=== PATIENT | female | born 1945 | race Two or more races ===

== ENCOUNTER 2022-04-01 09:43 | Emergency (ER) | payer MEDICARE ==
[~2022-04-01] VITALS: Ht 154.9 cm; Wt 63.0 kg
[~2022-04-01 09:43] MED LIST: ALEN70TA74 PO; ASPI-543 PO; HYDR500C PO; HYDR50TA15 PO; ISO60SRT PO; METO-289 PO; NIFE1TAB36 PO; SIMV-8 PO; TOPI50TA53 PO; [UNRECOGNIZED DRUG - CODE] PO
[2022-04-01] MEDS ORDERED: PANT40TA2 PO (11:09)
[2022-04-01] MEDS ORDERED: AZIT250T9 PO (11:09)
[2022-04-01] MEDS ORDERED: PRED10TA PO (11:09)
[2022-04-01 11:12] LABS: Basophils # (auto) 0 10 ^3/uL (0-0.2); Eosinophils # (auto) 0 10 ^3/uL (0-0.8); Eosinophils % (auto) 0.1 % (0.0-7.0); Hematocrit 39.1 % (36.0-46.0); Mean Corpuscular Hemoglobin 37.9 pg (28.0-32.0); Monocytes # (auto) 0.5 10 ^3/uL (0-1.3); Neutrophils # (auto) 7.2 10 ^3/uL (1.6-8.6); Nucleated Red Blood Cells % 0.1 %; Red Blood Cells 3.58 10^6/uL (4.0-5.20); White Blood Cell 8.8 10^3/uL (4.4-10.8)
[2022-04-01 11:15] LABS: Basophils % (auto) 0.3 % (0.0-2.0); Hemoglobin 13.5 g/dL (12.2-16.2); Lymphocytes % (auto) 11.6 % (10.0-50.0); Mean Corpuscular Hgb Conc. 34.6 g/dL (32.0-36.0); Mean Corpuscular Volume 109.4 fL (80.0-100.0); Monocytes % (auto) 6.2 % (0.0-12.0); Neutrophils % (auto) 81.8 % (37.0-80.0); Red Cell Distribution Width 14.1 % (11.8-14.3)
[2022-04-01] MEDS ORDERED: cefTRIAXone 1GM/50ML D5W 50 ML IV ONE (11:15)
[2022-04-01 11:20] LABS: Albumin 4.5 g/dL (3.4-5.0); BUN/Creatinine Ratio 19.8; Potassium 4.5 mmol/L (3.5-5.1)
[2022-04-01 11:23] LABS: Bilirubin, Total 0.4 mg/dL (0.2-1.0); Total Protein 7.9 g/dL (6.4-8.2)
[2022-04-01] MEDS ORDERED: cefTRIAXone SOD 1,000 MG VL ONE (12:38)
[2022-04-01 12:50] VITALS: BP 178/82
== END 2022-04-01 12:52 | disposition home or self-care (01) ==
LOC: ER 09:43
DX: U07.1 COVID-19 (principal); J06.9 Acute upper respiratory infection, unspecified; E78.5 Hyperlipidemia, unspecified; I10 Essential (primary) hypertension; Z90.49 Acquired absence of other specified parts of digestive tract; Z90.710 Acquired absence of both cervix and uterus
CPT/HCPCS: 36415; 71046; 80053; 85025; J0696

== ENCOUNTER 2022-04-15 08:14 | Emergency (ER) | payer MEDICARE ==
[~2022-04-15] VITALS: Ht 154.9 cm; Wt 63.0 kg
[~2022-04-15 08:14] MED LIST changes: +AZIT250T9 PO; +PANT40TA2 PO; +PRED10TA PO
[2022-04-15 09:15] VITALS: BP 162/67
== END 2022-04-15 11:15 | disposition home or self-care (01) ==
LOC: ER 08:14
DX: Z00.00 Encounter for general adult medical examination without abnormal findings (principal); E78.5 Hyperlipidemia, unspecified; I10 Essential (primary) hypertension; Z20.822 Contact with and (suspected) exposure to COVID-19; Z90.49 Acquired absence of other specified parts of digestive tract; Z90.710 Acquired absence of both cervix and uterus
CPT/HCPCS: 36415

== ENCOUNTER → 2022-09-06 | Outpatient (CLI) | payer MEDICARE ==
[2022-09-06 12:42] LABS: Basophils # (auto) 0 10 ^3/uL (0-0.2); Basophils % (auto) 0.4 % (0.0-2.0); Eosinophils # (auto) 0.1 10 ^3/uL (0-0.8); Eosinophils % (auto) 1.3 % (0.0-7.0); Hemoglobin 13.8 g/dL (12.2-16.2); Lymphocytes # (auto) 2.9 10 ^3/uL (0.4-5.4); Lymphocytes % (auto) 37.2 % (10.0-50.0); Mean Corpuscular Hgb Conc. 32.9 g/dL (32.0-36.0); Mean Corpuscular Volume 112.4 fL (80.0-100.0); Monocytes # (auto) 0.7 10 ^3/uL (0-1.3); Monocytes % (auto) 8.8 % (0.0-12.0); Neutrophils # (auto) 4.1 10 ^3/uL (1.6-8.6); Neutrophils % (auto) 52.3 % (37.0-80.0); Nucleated Red Blood Cells % 0.1 %; Red Blood Cells 3.74 10^6/uL (4.0-5.20); Red Cell Distribution Width 14.8 % (11.8-14.3); Urine Blood Negative /uL (Negative); Urine Specific Gravity 1.011 (1.001-1.035); White Blood Cell 7.8 10^3/uL (4.4-10.8)
[2022-09-06 13:02] LABS: Alanine Aminotransferase 27 U/L (13-56); Albumin 3.9 g/dL (3.4-5.0); Anion Gap 7 (5-15); Aspartate Aminotransferase 17 U/L (15-37); BUN/Creatinine Ratio 28.8; Bilirubin, Direct < 0.1 mg/dL (0-0.2); Blood Urea Nitrogen 23 mg/dL (7-18); Carbon Dioxide 18 mmol/L (21-32); Chloride 117 mmol/L (98-107); Cholesterol 167 mg/dL (< 200); GFR African American 90 mL/min; GFR Non-African American 74 mL/min; Glucose 108 mg/dL (74-106); Potassium 3.8 mmol/L (3.5-5.1); Sodium 142 mmol/L (136-145); Triglycerides 266 mg/dL (< 150)
[2022-09-06 13:06] LABS: Alkaline Phosphatase 42 U/L (45-117); Bilirubin, Total 0.2 mg/dL (0.2-1.0); HDL Cholesterol 51 mg/dL (40-59); LDL Cholesterol 88 mg/dL (< 100); Total Protein 7.5 g/dL (6.4-8.2)
== END | disposition home or self-care (01) ==
LOC: Rad HDHVI 10:12
PROVIDERS: ATTEND Internal Medicine Cardiovascular Disease
DX: I10 Essential (primary) hypertension (principal); E55.9 Vitamin D deficiency, unspecified
CPT/HCPCS: 36415; 71046; 80048; 80061; 80076; 81003; 82306; 83036; 84443; 85025; 87086

== ENCOUNTER 2022-09-09 08:58 | Outpatient (CLI) | payer MEDICARE ==
[2022-09-09 08:58] VITALS: BP 139/61
[2022-09-09] MEDS ORDERED: IOHEXOL 350 MG/ML 100ML IJ ONE (09:02)
== END 2022-09-09 09:02 | disposition home or self-care (01) ==
LOC: Rad HDHVI 08:58
PROVIDERS: ATTEND Internal Medicine Cardiovascular Disease
DX: I25.10 Atherosclerotic heart disease of native coronary artery without angina pectoris (principal); R07.9 Chest pain, unspecified; R06.9 Unspecified abnormalities of breathing
CPT/HCPCS: G0463; Q9967

== ENCOUNTER → 2022-09-10 | Outpatient (CLI) | payer MEDICARE ==
[2022-09-10 08:49] VITALS: BP 137/59
[2022-09-10 09:18] VITALS: BP 155/59
== END | disposition home or self-care (01) ==
LOC: Rad HDHVI 08:38
PROVIDERS: ATTEND Internal Medicine Cardiovascular Disease
DX: J81.1 Chronic pulmonary edema (principal); H17.13 Central corneal opacity, bilateral; J84.9 Interstitial pulmonary disease, unspecified; I20.9 Angina pectoris, unspecified; R06.02 Shortness of breath; R07.89 Other chest pain
CPT/HCPCS: 71275; G0463

== ENCOUNTER → 2022-09-12 | Outpatient (CLI) | payer MEDICARE | END | disposition home or self-care (01) | LOC: Rad HDHVI 15:31 | PROVIDERS: ATTEND Internal Medicine Cardiovascular Disease | DX: I08.0 Rheumatic disorders of both mitral and aortic valves (principal); I10 Essential (primary) hypertension | CPT/HCPCS: 93306 ==

== ENCOUNTER → 2022-09-17 | Outpatient (CLI) | payer MEDICARE ==
[~2022-09-17] VITALS: Ht 154.9 cm; Wt 63.0 kg
[~2022-09-17] MED LIST changes: +ADENOSINE 53 MG in GIVE UN-DILUTED 0 ML IV ONE; +ADENOSINE 90 MG/30 ML INJ IV ONE
== END | disposition home or self-care (01) ==
LOC: Rad HDHVI 08:13
PROVIDERS: ATTEND Internal Medicine Cardiovascular Disease
DX: I11.0 Hypertensive heart disease with heart failure (principal); I50.33 Acute on chronic diastolic (congestive) heart failure; R06.02 Shortness of breath; E78.5 Hyperlipidemia, unspecified; R07.9 Chest pain, unspecified; I20.9 Angina pectoris, unspecified; Z79.899 Other long term (current) drug therapy
CPT/HCPCS: 78452; 93005; 96374; 96375; A9500; J0153

== ENCOUNTER → 2022-10-23 | Outpatient (CLI) | payer MEDICARE ==
[~2022-10-23] MED LIST changes: -ADENOSINE 53 MG in GIVE UN-DILUTED 0 ML IV ONE; -ADENOSINE 90 MG/30 ML INJ IV ONE; +ESOM40CA39 PO; +ISOS1TAB28 PO; +NIFE1TAB30 PO; +TOPI25TA84 PO
[2022-10-23 09:00] VITALS: BP 145/72
[2022-10-23 09:20] VITALS: BP 131/62
[2022-10-23 12:00] LABS: Potassium 3.8 mmol/L (3.5-5.1)
[2022-10-23 12:04] LABS: BUN/Creatinine Ratio 23.1; Calcium 10.1 mg/dL (8.5-10.1)
[2022-10-23 12:33] LABS: INR 1.07 (0.9-1.15); Partial Thromboplastin Time 25.8 sec (24.6-33.4)
[2022-10-23 12:40] LABS: Basophils # (auto) 0 10 ^3/uL (0-0.2); Basophils % (auto) 0.4 % (0.0-2.0); Eosinophils # (auto) 0 10 ^3/uL (0-0.8); Eosinophils % (auto) 0.5 % (0.0-7.0); Hematocrit 38.5 % (36.0-46.0); Hemoglobin 12.7 g/dL (12.2-16.2); Lymphocytes # (auto) 2.2 10 ^3/uL (0.4-5.4); Lymphocytes % (auto) 38.7 % (10.0-50.0); Mean Corpuscular Hemoglobin 36.8 pg (28.0-32.0); Mean Corpuscular Volume 111.5 fL (80.0-100.0); Monocytes # (auto) 0.4 10 ^3/uL (0-1.3); Monocytes % (auto) 7.5 % (0.0-12.0); Neutrophils # (auto) 3.1 10 ^3/uL (1.6-8.6); Neutrophils % (auto) 52.9 % (37.0-80.0); Nucleated Red Blood Cells % 0.1 %; Red Blood Cells 3.45 10^6/uL (4.0-5.20); Red Cell Distribution Width 14.8 % (11.8-14.3); White Blood Cell 5.8 10^3/uL (4.4-10.8)
== END | disposition home or self-care (01) ==
LOC: Rad HDHVI 08:50
PROVIDERS: ATTEND Internal Medicine Cardiovascular Disease
DX: Z01.818 Encounter for other preprocedural examination (principal); R94.31 Abnormal electrocardiogram [ECG] [EKG]; I20.0 Unstable angina; I11.0 Hypertensive heart disease with heart failure; I50.33 Acute on chronic diastolic (congestive) heart failure; R06.02 Shortness of breath; Z20.822 Contact with and (suspected) exposure to COVID-19
CPT/HCPCS: 36415; 71046; 80048; 85025; 85610; 85730; 93005; C9803; G0463; U0003

== ENCOUNTER 2022-10-24 07:20 | Day surgery (SDC) | payer MEDICARE ==
[~2022-10-24] VITALS: Ht 154.9 cm; Wt 64.4 kg
[~2022-10-24 07:20] MED LIST changes: -ALEN70TA74 PO; -ASPI-543 PO; -AZIT250T9 PO; -ISO60SRT PO; -NIFE1TAB30 PO; -PANT40TA2 PO; -PRED10TA PO; -TOPI25TA84 PO
[2022-10-24] MEDS ORDERED: ANGIOMAX 250 MG VIAL IV ONE (10:11)
[2022-10-24] MEDS ORDERED: HEPARIN SODIUM (PORCINE) 5000 UNITS/ML 1ML VIAL ONE (10:12)
[2022-10-24] MEDS ORDERED: SODIUM CHL 0.9% 0 ML ONE (10:12)
[2022-10-24] MEDS ORDERED: MIDAZOLAM HCL 2MG/2ML 2ml VIAL (1mg/ml) ONE (10:12)
[2022-10-24] MEDS ORDERED: fentaNYL CITRATE 100 MCG/2 ML VL ONE (10:12)
[2022-10-24] MEDS ORDERED: IOHEXOL 350 MG/ML 100ML IJ ONE (10:12)
[2022-10-24] MEDS ORDERED: LIDOCAINE 2%HCL (LOCAL ANESTH.) INJ 20ML MDV ONE (10:13)
[2022-10-24] MEDS ORDERED: TOPI25TA84 PO (11:06)
[2022-10-24] MEDS ORDERED: NIFE1TAB30 PO (11:06)
== END 2022-10-24 12:10 | disposition home or self-care (01) ==
LOC: CATH 07:20
PROVIDERS: ATTEND Internal Medicine Cardiovascular Disease
DX: I11.0 Hypertensive heart disease with heart failure (principal); I50.30 Unspecified diastolic (congestive) heart failure; Z20.822 Contact with and (suspected) exposure to COVID-19
CPT/HCPCS: 93460; C1751; C1760; C1769; C1894; J1644; J2250; J3010; Q9967; 99152

== ENCOUNTER → 2022-11-18 | Outpatient (CLI) | payer MEDICARE ==
[~2022-11-18] MED LIST changes: +NIFE1TAB30 PO; -NIFE1TAB36 PO; +TOPI25TA84 PO; -TOPI50TA53 PO
[2022-11-18 16:40] LABS: Urine Blood Negative /uL (Negative); Urine Specific Gravity 1.021 (1.001-1.035)
== END | disposition home or self-care (01) ==
LOC: LAB 11:46
PROVIDERS: ATTEND Internal Medicine Cardiovascular Disease
DX: N39.0 Urinary tract infection, site not specified (principal)
CPT/HCPCS: 81003

== ENCOUNTER → 2023-03-03 | Outpatient (CLI) | payer MEDICARE ==
[2023-03-03 13:48] VITALS: BP 145/65
[2023-03-03 13:58] VITALS: BP 146/68
== END | disposition home or self-care (01) ==
LOC: Rad HDHVI 13:38
PROVIDERS: ATTEND Internal Medicine Cardiovascular Disease
DX: Z01.818 Encounter for other preprocedural examination (principal); I10 Essential (primary) hypertension; R07.89 Other chest pain; R06.02 Shortness of breath
CPT/HCPCS: 71046; 93005; G0463

== ENCOUNTER 2023-03-06 09:27 | Day surgery (SDC) | payer MEDICARE ==
[2023-03-03 15:58] LABS: Basophils # (auto) 0 10 ^3/uL (0-0.2); Eosinophils # (auto) 0 10 ^3/uL (0-0.8); Eosinophils % (auto) 0.5 % (0.0-7.0); Monocytes # (auto) 0.6 10 ^3/uL (0-1.3); Red Cell Distribution Width 13.7 % (11.8-14.3)
[2023-03-03 16:00] LABS: Basophils % (auto) 0.4 % (0.0-2.0); Hematocrit 39.5 % (36.0-46.0); Hemoglobin 13.4 g/dL (12.2-16.2); Lymphocytes # (auto) 3.5 10 ^3/uL (0.4-5.4); Lymphocytes % (auto) 40.6 % (10.0-50.0); Mean Corpuscular Hemoglobin 35.9 pg (28.0-32.0); Mean Corpuscular Hgb Conc. 33.8 g/dL (32.0-36.0); Mean Corpuscular Volume 106.1 fL (80.0-100.0); Monocytes % (auto) 7.3 % (0.0-12.0); Neutrophils # (auto) 4.4 10 ^3/uL (1.6-8.6); Neutrophils % (auto) 51.2 % (37.0-80.0); Nucleated Red Blood Cells % 0.1 %; Red Blood Cells 3.72 10^6/uL (4.0-5.20); White Blood Cell 8.6 10^3/uL (4.4-10.8)
[2023-03-03 16:23] LABS: INR 1.13 (0.9-1.15); Partial Thromboplastin Time 24.8 sec (24.6-33.4)
[2023-03-03 16:28] LABS: BUN/Creatinine Ratio 19.5 (10.0-20.0); Calcium 9.6 mg/dL (8.5-10.1); Potassium 3.9 mmol/L (3.5-5.1)
[~2023-03-06] VITALS: Ht 154.9 cm; Wt 63.0 kg
[~2023-03-06 09:27] MED LIST changes: -HYDR50TA15 PO; -METO-289 PO; -SIMV-8 PO; -TOPI25TA84 PO
[2023-03-06] MEDS ORDERED: ANGIOMAX 250 MG VIAL IV ONE (14:58)
[2023-03-06] MEDS ORDERED: SODIUM CHL 0.9% 0 ML ONE (14:59)
[2023-03-06] MEDS ORDERED: MIDAZOLAM HCL 2MG/2ML 2ml VIAL (1mg/ml) ONE (14:59)
[2023-03-06] MEDS ORDERED: fentaNYL CITRATE 100 MCG/2 ML VL ONE (14:59)
[2023-03-06] MEDS ORDERED: LIDOCAINE 2%HCL (LOCAL ANESTH.) INJ 20ML MDV ONE (15:03)
[2023-03-06] MEDS ORDERED: IOHEXOL 350 MG/ML 100ML IJ ONE (15:03)
[2023-03-06] MEDS ORDERED: ONDANSETRON HCL 4 MG/2 ML VIAL IV PRN (16:15)
== END 2023-03-06 17:45 | disposition home or self-care (01) ==
LOC: CATH 09:27
PROVIDERS: ATTEND Internal Medicine Cardiovascular Disease
DX: R07.89 Other chest pain (principal); R06.02 Shortness of breath; I10 Essential (primary) hypertension; Z79.899 Other long term (current) drug therapy
CPT/HCPCS: 36415; 80048; 85025; 85610; 85730; 93458; C1894; J1644; J2250; J2405; J3010; Q9967; 99152

== ENCOUNTER → 2024-04-09 | Outpatient (CLI) | payer MEDICARE ==
[~2024-04-09] MED LIST changes: -HYDR500C PO; +HYDR500C3 PO; +IOHEXOL 350 MG/ML 100ML IJ ONE
[2024-04-09 09:45] VITALS: BP 128/54; PULSE 81; RESP 16; O2SAT 96
[2024-04-09 10:00] VITALS: BP 139/54; PULSE 79; RESP 16; O2SAT 96
== END | disposition home or self-care (01) ==
LOC: Rad HDHVI 09:23
PROVIDERS: ATTEND Internal Medicine Cardiovascular Disease
DX: R06.02 Shortness of breath (principal); I25.10 Atherosclerotic heart disease of native coronary artery without angina pectoris; E04.2 Nontoxic multinodular goiter; R61 Generalized hyperhidrosis
CPT/HCPCS: 71260; G0463; Q9967

== ENCOUNTER → 2024-04-12 | Outpatient (CLI) | payer MEDICARE ==
[~2024-04-12] MED LIST changes: -IOHEXOL 350 MG/ML 100ML IJ ONE
== END | disposition home or self-care (01) ==
LOC: Rad HDHVI 08:02
PROVIDERS: ATTEND Internal Medicine Cardiovascular Disease
DX: I08.0 Rheumatic disorders of both mitral and aortic valves (principal); R06.02 Shortness of breath; I11.9 Hypertensive heart disease without heart failure
CPT/HCPCS: 93306

== ENCOUNTER → 2024-10-12 | Outpatient (CLI) | payer MEDICARE ==
[~2024-10-12] MED LIST changes: +READI-CAT 2 (BARIUM SULF)(VANILLA SMOOTHIE) 450ML ONE
[2024-10-12 11:28] VITALS: BP 152/58; PULSE 83; RESP 18; O2SAT 93
[2024-10-12] MEDS: MULTIPLE VIT 10 ML IV ONE (11:39)
[2024-10-12] MEDS: MVI in SODIUM CHLORIDE 0.9% 500 ML IVB ONE (11:46)
[2024-10-12] MEDS: cefTRIAXone 1GM/50ML D5W 50 ML IV ONE ×2 (12:36→14:03)
--- NOTE | 2024-10-12 14:32 | DVH ---
CT ABDOMEN AND PELVIS WITHOUT CONTRAST CLINICAL HISTORY: DIVERTICULITIS TECHNIQUE: Multiple contiguous axial images of the abdomen and pelvis without intravenous contrast. The images were reformatted degenerate coronal and sagittal reconstructions. All CT scans at this medical facility are performed using dose modulation techniques as appropriate t o a performed exam including the following:Automated exposure control was utilized; adjustment of the MA and/or KV according to patient size; and use of iterative reconstruction technique. Radiation Dose Information: CT Dose: CTDI volume is 7.28 mGy. Dose-length product is 345.52 mGy*cm Comparison: [facility] on DOS: 09/12/22 FINDINGS: Evaluation of the abdomen and pelvis is limited without intravenous contrast. Gallbladder is surgically absent. The liver, pancreas, kidneys, adrenal glands, and spleen appear within normal limits. There is no gross evidence of abdominal lymphadenopathy. There is no free fluid or free air. The stomach grossly appears unremarkable. The small and large bowel loops demonstrate normal caliber . There are multiple diverticula in the sigmoid colon without significant inflammatory changes to toro ggest acute diverticulitis. The abdominal aorta and IVC appear within normal limits. There is a small fat containing supraumbilic al ventral hernia. The bladder appears unremarkable for the degree of distention. The uterus is surgically absent.. The re is no gross evidence of a pelvic mass. There is no free fluid collection. There is a tiny calcified granuloma in the left lung base. The right lung base is clear. There is no acute osseous abnormality. IMPRESSION: 1. There are multiple diverticula in the sigmoid colon without significant inflammatory changes to toro ggest acute cholecystitis. 2. Small fat containing supraumbilical ventral hernia. HS:Y
[2024-10-12 14:33] VITALS: BP 158/62; PULSE 62; RESP 16; O2SAT 94
== END | disposition home or self-care (01) ==
LOC: Rad HDHVI 11:27
PROVIDERS: ATTEND Internal Medicine Cardiovascular Disease
DX: E86.0 Dehydration (principal); R53.83 Other fatigue; I95.9 Hypotension, unspecified; Z79.899 Other long term (current) drug therapy
CPT/HCPCS: 74176; 96361; 96365; G0463; J0696; 96360; 96367

== ENCOUNTER 2025-05-25 10:22 | Outpatient (CLI) | payer MEDICARE, MEDICAID ==
[2025-05-25 10:18] VITALS: BP 188/74; PULSE 72; RESP 20; O2SAT 94
[~2025-05-25 10:22] MED LIST changes: -READI-CAT 2 (BARIUM SULF)(VANILLA SMOOTHIE) 450ML ONE
[2025-05-25] MEDS: MAGNESIUM SULFATE 1GM/100ML 200 ML IV ONE (10:35)
[2025-05-25] MEDS: MULTIPLE VIT 10 ML IV ONE (10:35)
[2025-05-25] MEDS: MVI in SODIUM CHLORIDE 0.9% 500 ML IVB ONE (10:40)
[2025-05-25] MEDS: MAGNESIUM SULFATE 1GM/100ML 100 ML IV ONE (10:42)
[2025-05-25 12:50] VITALS: BP 154/61; PULSE 55; RESP 20; O2SAT 94
== END 2025-05-25 17:00 | disposition home or self-care (01) ==
LOC: CHF HDHVI 10:22
PROVIDERS: ATTEND Internal Medicine Cardiovascular Disease
DX: E86.0 Dehydration (principal); E83.42 Hypomagnesemia; I10 Essential (primary) hypertension
CPT/HCPCS: 96365; 96366; 96368; G0463; J3411; J3475; J7040; 96360; 96361; 96367

== ENCOUNTER 2025-06-03 09:22 | Outpatient (CLI) | payer MEDICARE, MEDICAID ==
--- NOTE | 2025-06-03 15:01 | DVHSR ---
APPROVED REPORT EXAM: Two-dimensional and M-mode echocardiogram with Doppler and color Doppler. DIMENSIONS LVDd4.6 (3.8-5.7cm)LA (2D)3.2 (1.9-4.0cm)Aortic Root2.8 (2.0-3.7cm) LVDs2.5 (2.5-4.0cm)LA (MM) (1.9-4.0cm)Aortic Cusp Exc1.3 (1.5-2.0cm) EF (%) 70.0 (55-70%)Rt. Atrium3.9 (1.9-4.0cm)Asc. Aorta cm IVSd1.1 (0.7-1.1cm)RV (D) (1.8-2.4cm) PWd1.1 (0.7-1.1cm) Mitral Valve MitralMitral Stenosis E wave0.90m/sMV Mean GR.mmHg A wave1.30m/sMV Peak GR.mmHg E/A ratio0.72D MVAcm2 Aortic Valve Aortic ValveAortic Stenosis V11.60m/Colby Mean GR.9mmHg V22.00m/Colby Peak GR.17mmHg LVOT Diameter2.1 (1.8-2.4cm)Doppler AVA2.77cm2 Pulmonic Valve V21.00m/s LEFT VENTRICLE The left ventricle is normal size. The left ventricle is normal in structure and function. The Ejection Fraction is within normal limits. RIGHT VENTRICLE The right ventricle is normal size. ATRIA The left atrial size is normal. The right atrium size is normal. The interatrial septum is intact with no evidence for an atrial septal defect. MITRAL VALVE The mitral valve is normal in structure. There is no mitral valve regurgitation noted. PULMONIC VALVE The pulmonic valve is not well visualized. TRICUSPID VALVE The tricuspid valve is grossly normal. AORTIC VALVE The aortic valve opens well. There is trace to mild aortic regurgitation. GREAT VESSELS The aortic root is normal size. PERICARDIAL EFFUSION There is no pericardial effusion. Conclusion EF >55%
== END 2025-06-03 17:00 | disposition home or self-care (01) ==
LOC: Rad HDHVI 09:22
PROVIDERS: ATTEND Internal Medicine Cardiovascular Disease
DX: I35.1 Nonrheumatic aortic (valve) insufficiency (principal)
CPT/HCPCS: 93306

== ENCOUNTER 2025-06-06 12:32 | Outpatient (CLI) | payer MEDICARE, MEDICAID ==
[~2025-06-06] VITALS: Ht 154.9 cm; Wt 62.6 kg
[2025-06-06] MEDS ORDERED: ADENOSINE 90 MG/30 ML INJ IV ONE (13:23)
[2025-06-06] MEDS ORDERED: ADENOSINE 53 MG in GIVE UN-DILUTED 0 ML IV ONE (14:30)
== END 2025-06-06 17:00 | disposition home or self-care (01) ==
LOC: Rad HDHVI 12:32
PROVIDERS: ATTEND Internal Medicine Cardiovascular Disease
DX: I49.1 Atrial premature depolarization (principal); R00.1 Bradycardia, unspecified; Z13.6 Encounter for screening for cardiovascular disorders; I10 Essential (primary) hypertension; I49.5 Sick sinus syndrome; I48.0 Paroxysmal atrial fibrillation; E78.00 Pure hypercholesterolemia, unspecified; J44.9 Chronic obstructive pulmonary disease, unspecified; R42 Dizziness and giddiness; R06.02 Shortness of breath; Z88.5 Allergy status to narcotic agent
CPT/HCPCS: 78452; 93017; A9500; J0153